=== PATIENT | female | born 1955 | race Caucasian/White ===

== ENCOUNTER → 2016-11-02 | Outpatient (CLI) | payer BC ==
--- NOTE | 2016-11-02 10:09 | KCIC ---
PROCEDURE Ultrasound of the right upper quadrant of the abdomen 11/02/2016 HISTORY Right upper quadrant abdominal pain for 2 weeks with nausea and vomiting. TECHNIQUE A real-time ultrasound examination of the right upper quadrant of the abdomen was performed. Multiple images were obtained. FINDINGS The gallbladder is well distended. No gallstones are visualized. The gallbladder wall thickness is within normal limits. No pericholecystic fluid is seen. The common bile duct measures 5 millimeters in diameter which is within normal limits. The liver is normal in size and echogenicity. It measures 15.4 centimeters in length. No focal abnormality of the liver seen. The visualized portions of the pancreas and right kidney are within normal limits. No free fluid is seen. IMPRESSION Negative study. Electronically signed by: Alex Herron MD (Nov 02, 2016 10:07:56)
== END | disposition home or self-care (01) ==
LOC: KCIC US 08:04
PROVIDERS: ATTEND Family Medicine
DX: K82.8 Other specified diseases of gallbladder (principal)
CPT/HCPCS: 76705

== ENCOUNTER → 2019-05-30 | Outpatient (CLI) | payer BC ==
--- NOTE | 2019-05-30 09:34 | RAD ---
Ultrasound evaluation of the abdominal aorta 05/30/2019 INDICATION: Palpable, pulsatile abnormality. Evaluate for aneurysm COMPARISON STUDY: Abdominal ultrasound November 02, 2016 Discussion: The abdominal aorta demonstrates a focal infrarenal aneurysmal dilatation measuring up to 3.1 cm. The proximal abdominal aorta measures 2.2 cm in diameter. The mid abdominal aorta measures 1.8 cm in diameter. Some atherosclerotic vascular irregularity seen within the aneurysm wall. The iliac arteries appear to be normal in caliber, though evaluation is limited by ultrasound. IMPRESSION: Infrarenal abdominal aortic aneurysm measuring up to 3.1 cm in diameter. Imaging surveillance with ultrasound, CTA, or combination thereof recommended Electronically signed by: Jose Faustin MD (05/30/2019 9:31 AM) [id number]
== END | disposition home or self-care (01) ==
LOC: US 08:57
PROVIDERS: ATTEND Obstetrics & Gynecology
DX: I71.4 Abdominal aortic aneurysm, without rupture (principal)
CPT/HCPCS: 76770